=== PATIENT | female | born 1980 | race Asian ===

== ENCOUNTER 2025-05-28 11:57 | Emergency (ER) | payer OTHER ==
[~2025-05-28] VITALS: Ht 160 cm; Wt 54.5 kg
[2025-05-28 12:21] VITALS: TEMP 98.3
[2025-05-28] MEDS ORDERED: LOSA-381 PO (12:31)
[2025-05-28] MEDS ORDERED: AMLO2.5T96 PO (12:31)
[2025-05-28] MEDS ORDERED: ATOR20TA PO (12:31)
[2025-05-28] MEDS: ACETAMINOPHEN 500 MG TABLET PO ONE (15:16)
[2025-05-28] MEDS: IBUPROFEN 600 MG TABLET PO ONE (15:16)
[2025-05-28] MEDS ORDERED: ACET-2247 PO (15:32)
[2025-05-28] MEDS ORDERED: IBUP-1492 PO (15:32)
[2025-05-28 15:53] VITALS: BP 147/92; PULSE 70; RESP 18; O2SAT 99
== END 2025-05-28 15:54 | disposition home or self-care (01) ==
LOC: EMS 11:57
DX: M54.2 Cervicalgia (principal); M25.512 Pain in left shoulder; E78.00 Pure hypercholesterolemia, unspecified; I10 Essential (primary) hypertension; Z79.899 Other long term (current) drug therapy; V43.52XA Car driver injured in collision with other type car in traffic accident, initial encounter; Y93.89 Activity, other specified; Y92.410 Unspecified street and highway as the place of occurrence of the external cause; Y99.8 Other external cause status
CPT/HCPCS: 72040; 99284; 73030-TC; Z7502; Z7610